=== PATIENT | male | born 2000 | race Caucasian/White ===

== ENCOUNTER 2019-11-18 19:27 | Emergency (ER) | payer OTHER ==
[~2019-11-18] VITALS: Ht 185.4 cm; Wt 78.0 kg
[2019-11-18] MEDS ORDERED: ACETAMINOPHEN500 MG PO (20:20)
== END 2019-11-18 20:24 | disposition home or self-care (01) ==
LOC: ER 19:27
DX: J11.1 Influenza due to unidentified influenza virus with other respiratory manifestations (principal)
CPT/HCPCS: 99283